=== PATIENT | male | born 1945 | race Caucasian/White ===

== ENCOUNTER 2017-08-18 07:23 | Inpatient (IN) | payer OTHER, MEDICARE ==
[2017-08-18] MEDS ORDERED: IV NORMAL SALINE 500ML BAG 500 ML IV (07:45)
[2017-08-18] MEDS: ACETAMINOPHEN 500 MG TABLET PO (08:06)
[2017-08-18] MEDS: IBUPROFEN 800 MG TABLET. PO (08:06)
[2017-08-18] MEDS: IV NORMAL SALINE 1000ML BAG 1,000 ML IV ×4 (08:07→09:30)
[2017-08-18 08:15] LABS: BASO % 0 % (0-3); EOS % 0 % (0-3); HEMATOCRIT 38.2 % (39.0-53.0); HEMOGLOBIN 13.2 g/dL (13.0-17.5); LYMPH # 0.8 x10^3/uL (1.0-4.8); LYMPH % 7 % (24-48); MEAN CORPUSCULAR HEMOGLOBIN 34 pg (25-35); MEAN CORPUSCULAR HGB CONC 35 g/dL (31-37); MEAN CORPUSCULAR VOLUME 98 fL (79-100); MONO # 0.8 x10^3/uL (0.0-1.1); MONO % 7 % (0-9); NEUT # 10.4 x10^3uL (1.8-7.7); NEUT % 86 % (31-73); PLATELET COUNT 171 x10^3/uL (140-400); RED BLOOD COUNT 3.91 x10^6/uL (4.30-5.70); RED CELL DISTRIBUTION WIDTH 14.2 % (11.5-14.5)
[2017-08-18 08:27] LABS: TROPONINI < 0.017 ng/mL (0.000-0.055)
[2017-08-18 08:29] LABS: PARTIAL THROMBOPLASTIN TIME 24 SEC (24-38); PROTHROMBIN TIME PATIENT 12.7 SEC (11.7-14.0)
[2017-08-18 08:32] LABS: CKMB INDEX 0.5 % (0-4); CREATINE KINASE 193 U/L (39-308)
[2017-08-18 08:35] LABS: ADD MAN DIFF? YES
[2017-08-18 08:39] LABS: LACTIC ACID 1.9 mmol/L (0.4-2.0)
[2017-08-18 08:46] LABS: ANION GAP 11 (6-14); BLOOD UREA NITROGEN 18 mg/dL (8-26); BUN/CREATININE RATIO 14 (6-20); CALCIUM 8.5 mg/dL (8.5-10.1); CARBON DIOXIDE 24 mmol/L (21-32); CHLORIDE 99 mmol/L (98-107); CREATININE 1.3 mg/dL (0.7-1.3); GFR 54.4; GLUCOSE 152 mg/dL (70-99); POTASSIUM 3.8 mmol/L (3.5-5.1); SODIUM 134 mmol/L (136-145)
[2017-08-18 08:53] LABS: ALBUMIN 3.2 g/dL (3.4-5.0); ALBUMIN/GLOBULIN RATIO 0.7 (1.0-1.7); ALK PHOS 98 U/L (46-116); ALT (SGPT) 33 U/L (16-63); AST (SGOT) 31 U/L (15-37); TOTAL BILIRUBIN 0.8 mg/dL (0.2-1.0); TOTAL PROTEIN 7.9 g/dL (6.4-8.2)
[2017-08-18] MEDS: VANCOMYCIN PER PHARMACY MC ×2 (09:00→13:37)
[2017-08-18 09:27] LABS: BILIRUBIN,URINE NEGATIVE (NEG); CLARITY,URINE CLEAR; COLOR,URINE YELLOW; GLUCOSE,URINE NEGATIVE (NEG); NITRITE,URINE NEGATIVE (NEG); PH,URINE 6.5; PROTEIN,URINE 100 mg/dL (NEG-TRACE); UROBILINOGEN,URINE 0.2 mg/dL (0.2 mg/dL)
[2017-08-18] MEDS ORDERED: ONDANSETRON PF 4 MG/2 ML VIAL. IV (09:30)
[2017-08-18] MEDS ORDERED: MORPHINE SULFATE 2 MG/ML DISP.SYRIN. IV (09:30)
[2017-08-18] MEDS ORDERED: ACETAMINOPHEN 325 MG TABLET. PO (09:30)
[2017-08-18 09:35] LABS: AMPHETAMINE/METHAMPHETAMINE NEG (NEG); BARBITURATES NEG (NEG); BENZODIAZEPINES NEG (NEG); CANNABINOIDS NEG (NEG); COCAINE NEG (NEG); METHADONE NEG (NEG); OPIATES NEG (NEG); PHENCYCLIDINE NEG (NEG)
[2017-08-18 09:36] LABS: ETHANOL, URINE NEG (NEG)
[2017-08-18 09:38] LABS: % BANDS 4 % (0-9); % LYMPHS 4 % (24-48); % MONOS 2 % (0-10); % SEGS 90 % (35-66); PLT ESTIMATE ADEQUATE (ADEQUATE)
[2017-08-18 09:41] LABS: BACTERIA,URINE 0 /HPF (0-FEW); RBC,URINE 0 /HPF (0-2); SQUAMOUS EPITHELIAL CELL,UR FEW /LPF; WBC,URINE RARE /HPF (0-4)
[2017-08-18 09:41] LABS: PROCALCITONIN < 0.10 ng/mL (0.00-0.10)
[2017-08-18] MEDS: VANCOMYCIN 2 GM in IV DEXTROSE 5 %-0.2 % NACL 500 ML IV (09:45)
[2017-08-18 10:12] LABS: NT-PRO BNP 261 pg/mL (0-124)
[2017-08-18] MEDS: IBUPROFEN 600 MG TABLET. PO (10:59)
[2017-08-18] MEDS: IPRATRPIUM/ALBUTEROL 0.5/2.5MG 3 ML NEBU. NEB ×3 (12:17→20:05)
[2017-08-18] MEDS: OSELTAMIVIR 30 MG CAPSULE PO ×2 (13:05→20:36)
[2017-08-18] MEDS: ALPRAZolam 0.25 MG TABLET PO ×2 (13:06→21:49)
[2017-08-18] MEDS: BENZOCAINE/MENTHOL LOZENGE. PO (17:15)
[2017-08-18] MEDS: PROMETH/CODEINE 6.25/10MG 5 ML SYRUP. PO (18:23)
[2017-08-18] MEDS: BENZONATATE 100 MG CAPSULE. PO (20:36)
[2017-08-19 05:45] LABS: ADD MAN DIFF? NO
[2017-08-19 05:50] LABS: BASO % 0 % (0-3); EOS % 0 % (0-3); HEMATOCRIT 35.4 % (39.0-53.0); LYMPH # 1.9 x10^3/uL (1.0-4.8); LYMPH % 12 % (24-48); MEAN CORPUSCULAR HEMOGLOBIN 33 pg (25-35); MEAN CORPUSCULAR HGB CONC 34 g/dL (31-37); MEAN CORPUSCULAR VOLUME 99 fL (79-100); MONO # 0.8 x10^3/uL (0.0-1.1); MONO % 5 % (0-9); NEUT # 13.7 x10^3uL (1.8-7.7); NEUT % 83 % (31-73); PLATELET COUNT 156 x10^3/uL (140-400); RED BLOOD COUNT 3.59 x10^6/uL (4.30-5.70); RED CELL DISTRIBUTION WIDTH 14.2 % (11.5-14.5); WHITE BLOOD COUNT 16.4 x10^3/uL (4.0-11.0)
[2017-08-19 06:17] LABS: ALBUMIN 2.4 g/dL (3.4-5.0); ALBUMIN/GLOBULIN RATIO 0.6 (1.0-1.7); ALK PHOS 74 U/L (46-116); ALT (SGPT) 26 U/L (16-63); ANION GAP 7 (6-14); AST (SGOT) 29 U/L (15-37); BLOOD UREA NITROGEN 13 mg/dL (8-26); BUN/CREATININE RATIO 11 (6-20); CALCIUM 8.3 mg/dL (8.5-10.1); CARBON DIOXIDE 26 mmol/L (21-32); CHLORIDE 105 mmol/L (98-107); CREATININE 1.2 mg/dL (0.7-1.3); GFR 59.7; GLUCOSE 140 mg/dL (70-99); POTASSIUM 3.4 mmol/L (3.5-5.1); SODIUM 138 mmol/L (136-145); TOTAL BILIRUBIN 0.7 mg/dL (0.2-1.0); TOTAL PROTEIN 6.4 g/dL (6.4-8.2)
[2017-08-19] MEDS: IPRATRPIUM/ALBUTEROL 0.5/2.5MG 3 ML NEBU. NEB ×2 (07:37→11:40)
[2017-08-19] MEDS: IBUPROFEN 600 MG TABLET. PO ×2 (08:16→14:59)
[2017-08-19] MEDS: OSELTAMIVIR 30 MG CAPSULE PO ×2 (08:16→20:21)
[2017-08-19] MEDS: BENZONATATE 100 MG CAPSULE. PO ×3 (08:16→20:21)
[2017-08-19] MEDS: VANCOMYCIN 1.25 GM in IV DEXTROSE 5% 250 ML IV (09:45)
[2017-08-19] MEDS: POTASSIUM CHLORIDE 20 MEQ TABLET.ER. PO (12:29)
[2017-08-19] MEDS ORDERED: hydrALAZINE 20 MG/ML VIAL. IVP (14:15)
[2017-08-19] MEDS ORDERED: DOCUSATE SODIUM 100 MG CAPSULE. PO (14:15)
[2017-08-19] MEDS ORDERED: MORPHINE SULFATE 4 MG/ML DISP.SYRIN. IV (14:15)
[2017-08-19] MEDS ORDERED: ONDANSETRON PF 4 MG/2 ML VIAL. IV (14:15)
[2017-08-19] MEDS: BENZOCAINE/MENTHOL LOZENGE. PO (14:59)
[2017-08-19] MEDS ORDERED: PNEUMOCOCCAL VAX SCREEN BY RX. MC (15:15)
[2017-08-19] MEDS ORDERED: PNEUMOC CONJ VACC 23-VALENT 0.5 ML VIAL. VAX IM (16:00)
[2017-08-19] MEDS: LACTOBACILLUS RHAMNOSUS GG 1 CAPSULE. PO (20:21)
[2017-08-19] MEDS: ALPRAZolam 0.25 MG TABLET PO (20:21)
[2017-08-19] MEDS: ENOXAPARIN 40 MG/0.4 ML SYRINGE. SQ (20:24)
[2017-08-20] MEDS: ALPRAZolam 0.25 MG TABLET PO ×2 (04:17→21:59)
[2017-08-20] MEDS: PROMETH/CODEINE 6.25/10MG 5 ML SYRUP. PO (04:17)
[2017-08-20] MEDS: BENZOCAINE/MENTHOL LOZENGE. PO (04:19)
[2017-08-20 04:42] LABS: ADD MAN DIFF? NO
[2017-08-20 04:58] LABS: BASO % 0 % (0-3); EOS % 1 % (0-3); HEMATOCRIT 38.5 % (39.0-53.0); HEMOGLOBIN 13.3 g/dL (13.0-17.5); LYMPH % 22 % (24-48); MEAN CORPUSCULAR HEMOGLOBIN 34 pg (25-35); MEAN CORPUSCULAR HGB CONC 34 g/dL (31-37); MEAN CORPUSCULAR VOLUME 98 fL (79-100); MONO % 8 % (0-9); NEUT % 69 % (31-73); PLATELET COUNT 181 x10^3/uL (140-400); RED BLOOD COUNT 3.93 x10^6/uL (4.30-5.70); RED CELL DISTRIBUTION WIDTH 14.3 % (11.5-14.5); WHITE BLOOD COUNT 10.2 x10^3/uL (4.0-11.0)
[2017-08-20 04:59] LABS: EOS # 0.1 x10^3/uL (0.0-0.7); LYMPH # 2.2 x10^3/uL (1.0-4.8); MONO # 0.8 x10^3/uL (0.0-1.1); NEUT # 7.1 x10^3uL (1.8-7.7)
[2017-08-20 06:01] LABS: ANION GAP 8 (6-14); BLOOD UREA NITROGEN 12 mg/dL (8-26); CARBON DIOXIDE 26 mmol/L (21-32); CHLORIDE 105 mmol/L (98-107); CREATININE 1.2 mg/dL (0.7-1.3); GFR 59.7; GLUCOSE 119 mg/dL (70-99); POTASSIUM 3.8 mmol/L (3.5-5.1); SODIUM 139 mmol/L (136-145)
[2017-08-20] MEDS: OSELTAMIVIR 30 MG CAPSULE PO ×2 (07:52→20:59)
[2017-08-20] MEDS: LACTOBACILLUS RHAMNOSUS GG 1 CAPSULE. PO ×2 (07:52→20:59)
[2017-08-20] MEDS: BENZONATATE 100 MG CAPSULE. PO ×3 (07:52→20:58)
[2017-08-20] MEDS: IPRATRPIUM/ALBUTEROL 0.5/2.5MG 3 ML NEBU. NEB ×5 (07:56→19:12)
[2017-08-20 09:53] LABS: VANC TR 7.1 mcg/mL (10.0-20.0)
[2017-08-20] MEDS: VANCOMYCIN PER PHARMACY MC ×2 (10:34→10:45)
[2017-08-20] MEDS: VANCOMYCIN 1.25 GM in IV DEXTROSE 5 %-0.2 % NACL 250 ML IV ×2 (11:21→22:00)
[2017-08-20] MEDS: traMADol 50 MG TABLET PO (16:19)
[2017-08-20] MEDS: MAG HYDROX/ALUMINUM HYD/SIMETH 30 ML ORAL.SUSP PO (20:58)
[2017-08-20] MEDS: ENOXAPARIN 40 MG/0.4 ML SYRINGE. SQ (20:59)
[2017-08-20] MEDS ORDERED: POLYVINYL ALCOHOL 1.4% OPHTH SOLUTION 15ML BOTTLE. OU (21:00)
[2017-08-21] MEDS: ACETAMINOPHEN 325 MG TABLET. PO (02:29)
[2017-08-21] MEDS: IPRATRPIUM/ALBUTEROL 0.5/2.5MG 3 ML NEBU. NEB ×2 (07:08→12:23)
[2017-08-21] MEDS: BENZONATATE 100 MG CAPSULE. PO ×2 (08:56→14:23)
[2017-08-21] MEDS: OSELTAMIVIR 30 MG CAPSULE PO (08:57)
[2017-08-21] MEDS: LACTOBACILLUS RHAMNOSUS GG 1 CAPSULE. PO (08:57)
[2017-08-21 10:29] LABS: ADD MAN DIFF? NO; BASO % 1 % (0-3); EOS # 0.1 x10^3/uL (0.0-0.7); EOS % 1 % (0-3); HEMATOCRIT 37.1 % (39.0-53.0); HEMOGLOBIN 12.7 g/dL (13.0-17.5); LYMPH # 1.4 x10^3/uL (1.0-4.8); LYMPH % 20 % (24-48); MEAN CORPUSCULAR HEMOGLOBIN 34 pg (25-35); MEAN CORPUSCULAR HGB CONC 34 g/dL (31-37); MEAN CORPUSCULAR VOLUME 98 fL (79-100); MONO # 0.5 x10^3/uL (0.0-1.1); MONO % 7 % (0-9); NEUT % 71 % (31-73); PLATELET COUNT 218 x10^3/uL (140-400); RED BLOOD COUNT 3.79 x10^6/uL (4.30-5.70); RED CELL DISTRIBUTION WIDTH 14.3 % (11.5-14.5)
[2017-08-21 10:30] LABS: ANION GAP 7 (6-14); BLOOD UREA NITROGEN 12 mg/dL (8-26); CALCIUM 8.4 mg/dL (8.5-10.1); CARBON DIOXIDE 28 mmol/L (21-32); CHLORIDE 104 mmol/L (98-107); CREATININE 1.2 mg/dL (0.7-1.3); GFR 59.7; GLUCOSE 162 mg/dL (70-99); POTASSIUM 3.6 mmol/L (3.5-5.1); SODIUM 139 mmol/L (136-145)
[2017-08-21] MEDS: traMADol 50 MG TABLET PO (10:33)
[2017-08-21] MEDS: VANCOMYCIN 1.25 GM in IV DEXTROSE 5 %-0.2 % NACL 250 ML IV (12:36)
[2017-08-21] MEDS: VANCOMYCIN PER PHARMACY MC (15:41)
== END 2017-08-21 16:20 | disposition home or self-care (01) | DRG 195 ==
LOC: ER 07:23 → 6 SOUTH 09:26
PROVIDERS: Internal Medicine
DX: J11.08 Influenza due to unidentified influenza virus with specified pneumonia (principal); E78.5 Hyperlipidemia, unspecified; J18.1 Lobar pneumonia, unspecified organism; J15.9 Unspecified bacterial pneumonia; J11.1 Influenza due to unidentified influenza virus with other respiratory manifestations; I10 Essential (primary) hypertension; I25.10 Atherosclerotic heart disease of native coronary artery without angina pectoris; I25.2 Old myocardial infarction; Z79.82 Long term (current) use of aspirin; Z83.3 Family history of diabetes mellitus; Z87.891 Personal history of nicotine dependence; Z88.0 Allergy status to penicillin
CPT/HCPCS: 36415; 71045; 71250; 80048; 80053; 80202; 80307; 81001; 82553; 83605; 83880; 84145; 84484; 85007; 85025; 85610; 85730; 87040; 93005; 94640; 94760; 96361; 96374; 96375; 99285; 99285-25; J1956; J3370; J7030; J7620